=== PATIENT | female | born 1950 | race Hispanic/Latino ===

== ENCOUNTER 2025-06-14 11:13 | Emergency (ER) | payer MEDICARE ==
[~2025-06-14] VITALS: Ht 152.4 cm; Wt 78.9 kg
--- NOTE | 2025-06-14 11:27 | ERN ---
ED Note History of Present Illness Stated Complaint: SOB Chief Complaint: Shortness of Breath Time Seen by MD: 11:15 Dictation: PATIENT IS A 75-YEAR-OLD FEMALE COMING IN FROM OFFICE WITH HISTORY OF END-STAGE RENAL DISEASE AND NEEDING ACCESS FOR DIALYSIS AND INITIATION OF DIALYSIS. SHE STATES SHE HAS HAS CHEST PRESSURE FOR THE LAST WEEK AND SHORTNESS A BREATH ON EXERTION FOR SEVERAL WEEKS. NO NAUSEA VOMITING NO REFERRED PAIN. Allergies: Coded Allergies: No Known Drug Allergies (Unverified Allergy, Unknown, 06/14/25) Past Medical History Past Medical History: High Cholesterol, Hypertension, Renal Disese, Renal Failure Surgical History: Other History: Not Applicable RN Note Reviewed/Agreed w/PFSH: Yes Review of System Dictation CONSTITUTIONAL: NEGATIVE EXCEPT FOR HPI HEAD/FACE: NEGATIVE EXCEPT FOR HPI EENT: NEGATIVE EXCEPT FOR HPI RESPIRATORY: NEGATIVE EXCEPT FOR HPI SHORTNESS A BREATH/CHEST PRESSURE GASTROINTESTINAL/ABDOMINAL: NEGATIVE EXCEPT FOR HPI GENITOURINARY: NEGATIVE EXCEPT FOR HPI MUSCULOSKELETAL: NEGATIVE EXCEPT FOR HPI INTEGUMENTARY: NEGATIVE EXCEPT FOR HPI NEUROLOGICAL/PSYCH: NEGATIVE EXCEPT FOR HPI HEMATOLOGIC/LYMPHATIC: NEGATIVE EXCEPT FOR HPI ALL SYSTEMS NEGATIVE, EXCEPT NOTED ABOVE. 13 POINT REVIEW OF SYSTEMS ASSESSED AND ALL NEGATIVE EXCEPT FOR ABOVE. Initial Vital Sign VS Vital Signs Date Time Temp Pulse Resp B/P (MAP) Pulse Ox O2 Delivery O2 Flow Rate FiO2 06/14/25 11:15 97.9 68 20 208/66 95 Room Air 06/14/25 11:34 0 21 Physical Exam Dictation VITAL SIGNS REVIEWED GENERAL APPEARANCE: ALERT, ORIENTED X 3, N MILD ACUTE DISTRESS, WELL DEVELOPED, NOURISHED. OBESE HEAD AND FACE: NON-TRAUMATIC. EYES: PERRL, PINK CONJUNCTIVAS, EYELID NO TRAUMA, ANTERIOR CHAMBER WITH ARCUS SENILIS. EARS: PINNAS INTACT AND NO SIGNS OF TRAUMA OR ERYTHEMA EAR CANALS CLEAR AND NO DISCHARGE TM NO ERYTHEMA NOSE: NO DISCHARGE, NO BLEEDING. OROPHARYNX: MOUTH NORMAL, TONGUE PINK, PHARYNX CLEAR,NO ERYTHEMA, TONSILS NO EXUDATES, NO ABSCESSES NOTED, MUCOUS MEMBRANE MOIST NECK: SUPPLE, NON-TENDER, NO THYROMEGALY, NO MASSES, NO JVD, NO BRUITS BREAST:DEFERRED CHEST:NO TENDERNESS, NO CREPITUS, NO PARADOXICAL MOVEMENT, NO RETRACTIONS LUNGS:CLEAR, WELL-VENTILATED, SYMMETRIC, NO RALES, NO WHEEZING, NO RHONCHI, NO STRIDOR, GOOD BREATH SOUNDS BILATERALLY HEART: REGULAR RATE, REGULAR RHYTHM, NO MURMUR, NO GALLOPS VASCULAR: TRACE PERIPHERAL EDEMA, ABDOMEN: SOFT, POSITIVE BOWEL SOUNDS, NONDISTENDED, NO GUARDING, NONTENDER, NO REBOUND, NO MASSES NO HEPATOMEGALY, NO SPLENOMEGALY, NO CRUZ'S SIGN, NO HERNIAS. RECTAL: DEFERRED GENITAL: DEFERRED NEUROLOGICAL: NORMAL SPEECH, MOTOR FUNCTION INTACT, SENSORY FUNCTION INTACT MUSCULOSKELETAL: NECK NONTENDER, FULL RANGE OF MOTION, BACK NONTENDER, FULL RANGE OF MOTION, EXTREMITIES: NONTENDER, FULL RANGE OF MOTION SKIN: COLOR PINK, DRY, NO TURGOR, NO RASH, NO LACERATIONS, NO ABRASIONS, NO CONTUSIONS. LYMPHATIC: DEFERRED Results (Laboratory/Radiology) Laboratory/Radiology Laboratory Tests Test 06/14/25 12:11 06/14/25 12:12 Urine Color COLORLESS (YELLOW) Urine Appearance CLEAR (CLEAR) Urine pH 7.5 (5.0-8.0) Urine Specific Media 1.008 (1.001-1.031) Urine Protein 300 mg/dL (NEGATIVE) H Urine Glucose (UA) NEGATIVE mg/dL (NEGATIVE) Urine Ketones NEGATIVE mg/dL (NEGATIVE) Urine Occult Blood +- (TRACE) (NEGATIVE) H Urine Nitrate NEGATIVE (NEGATIVE) Urine Bilirubin NEGATIVE mg/dL (NEGATIVE) Urine Urobilinogen 0.2 mg/dL (0.2-1.0) Urine Leukocyte Esterase NEGATIVE Elida/uL Urine RBC None /HPF (0-1) Urine WBC 6-10 /HPF (0-1) H Urine Squamous Epithelial Cells FEW /HPF (0-2) Urine Bacteria Rare /HPF (None Seen) White Blood Count 9.7 K/uL (4.8-10.8) Red Blood Count 2.84 MIL/uL (4.00-5.50) L Hemoglobin 8.5 g/dL (12.0-16.0) L Hematocrit 26.3 % (36-48) L Mean Corpuscular Volume 92.6 fL (79-99) Mean Corpuscular Hemoglobin 29.9 pg (27.0-33.0) Mean Corpuscular Hemoglobin Concent 32.3 g/dL (32.0-36.0) Red Cell Distribution Width 15.0 % (11.0-15.5) Platelet Count 205 K/uL (130-400) Mean Platelet Volume 10.8 fL (7.5-10.5) H Immature Granulocyte % (Auto) 0.3 % (0-1) Neutrophils (%) (Auto) 79.8 % (40.0-77.0) H Lymphocytes (%) (Auto) 11.2 % (21.0-51.0) L Monocytes (%) (Auto) 6.6 % (3.0-13.0) Eosinophils (%) (Auto) 1.6 % (0.0-8.0) Basophils (%) (Auto) 0.5 % (0.0-5.0) Neutrophils # (Auto) 7.8 K/uL (1.8-7.7) H Lymphocytes # (Auto) 1.1 K/uL (1.0-4.8) Monocytes # (Auto) 0.6 K/uL (0.1-1.0) Eosinophils # (Auto) 0.16 K/uL (0.00-0.70) Basophils # (Auto) 0.05 K/uL (0.00-0.20) Absolute Immature Granulocyte (auto 0.03 K/uL (0-1) Nucleated Red Blood Cells 0.0 % (0.0-0.19) Prothrombin Time 10.3 SEC (9.6-11.6) Prothromb Time International Ratio 0.97 (0.85-1.15) Activated Partial Thromboplast Time 29.5 SEC (26.3-35.5) Sodium Level 144 mmol/L (136-145) Potassium Level 3.6 mmol/L (3.5-5.1) Chloride Level 99 mmol/L (101-111) L Carbon Dioxide Level 31 mmol/L (21-32) Blood Urea Nitrogen 78 mg/dL (7-18) *H Creatinine 10.0 mg/dL (0.5-1.0) *H Glomerular Filtration Rate Calc 4 mL/min (>90) Random Glucose 98 mg/dL (70-105) Total Calcium 9.1 mg/dL (8.5-10.1) Troponin I High Sensitivity 13 ng/L (4-50) COMPARISON: None provided. FINDINGS: There is mild bilateral perihilar and bibasilar airspace disease that may reflect mild pulmonary edema. Blunting of the left costophrenic angle may reflect a small effusion. No pneumothorax. Mild to moderate cardiomegaly, and pulmonary vascular congestion. IMPRESSION: 1. Mild bilateral pulmonary edema with possible small left pleural effusion 2. Mild to moderate cardiomegaly with pulmonary vascular congestion /[place] Labs Reviewed?: Yes EKG Comment: EKG SINUS RHYTHM/HEART RATE 75/LEFT ATRIAL ENLARGEMENT/QT INTERVAL PROLONGED 525 MILLISECONDS ED Course ED Course Orders Procedure Category Date Status Time Pt And Ptt LAB 06/14/25 Complete 11:21 Cbc With Differential LAB 06/14/25 Complete 11:21 Chest 1vw RAD 06/14/25 Resulted 11:21 12 Lead Ekg Tracing- EKG 06/14/25 Complete Technical 11:21 Troponin I High LAB 06/14/25 Complete Sensitivity 11:21 Urinalysis Profile LAB 06/14/25 Complete 11:21 Basic Metabolic Panel LAB 06/14/25 Complete 11:21 Hydralazine 20mg Inj PHA 06/14/25 Complete (Apresoline 20mg In 11:30 Culture Urine URSULA 06/14/25 In Process 12:42 Furosemide 100mg Vial PHA 06/14/25 Complete (Lasix 100mg Vial) 14:00 Current Medications Medications (Trade) Dose Ordered Sig/Moe Route PRN Reason Start Time Stop Time Status Last Admin Dose Admin Furosemide (LASix 100MG VIAL) 80 mg ONCE ONCE IVP 06/14/25 14:00 06/14/25 14:01 DC 06/14/25 15:13 Hydralazine HCl (APRESOLine 20MG INJ) 20 mg ONCE ONCE IM 06/14/25 11:30 06/14/25 11:31 DC 06/14/25 12:32 Vital Signs Date Time Temp Pulse Resp B/P (MAP) Pulse Ox O2 Delivery O2 Flow Rate FiO2 06/14/25 15:06 98.2 66 18 141/61 99 Nasal Cannula* 2 06/14/25 13:15 97.9 64 18 168/40 99 Nasal Cannula* 2 06/14/25 12:45 97.9 62 20 181/67 96 Nasal Cannula* 2 06/14/25 12:30 97.9 61 20 191/71 99 Nasal Cannula* 2 06/14/25 11:34 97.9 68 20 208/66 96 Room Air* 0 21 8 11:15 97.9 68 20 208/66 95 Room Air 1315/NO INTERVENTIONAL RADIOLOGY AVAILABLE UNTIL [place] [facility] [place] WILL CONSULT GENERAL SURGERY TO SEE IF HE COULD PLACE A [facility] OR WE WILL FOLLOW UP FOR TRANSFER 1316/SPOKE WITH AND HE IS UNABLE TO ASSIST WITH A [facility]ATH. 1320/PATIENT TO SEE IF CYN CATHETER POSSIBLE IN ICU. ALSO WE WILL NOTIFY . 1350/SPOKE WITH AND HE IS AWARE THAT I WE WILL ATTEMPT TO HAVE PATIENT ADMITTED TO ICU FOR A CYN CATHETER IF CAN BE PLACED BY FUNERAL PROFESSIONAL, IF NOT HE WOULD LIKE PATIENT TRANSFERRED TO [facility] WHERE HE HAS PRIVILEGES. HE DID AGREED THAT IT WE COULD HAVE PATIENT ADMITTED FOR CYN HERE THAT HE WOULD BE AMENABLE TO THAT HOWEVER HE SAID SHE NEEDS TO BE DIALYZED NOW 1410/SPOKE WITH [facility]OS[facility]IGUEL [facility] FOR [facility]. HE HAD SPOKEN TO AND . NO CATHETERS AVAILABLE AT [facility] [place]. THEY WOULD LIKE PATIENT TRANSFERRED TO [facility] ER THE ER SPOKE WITH Oli RN LUNCH TRUCK OPERATOR TO INITIATE TRANSFER 1505 SPOKE WITH [facility] AT [facility] TRANSFER CENTER. SHE ATTEMPTED TO TRANSFER ME TO DR. THOMAS MCKEON, HE DEFERRED ME TO INTERVENTIONAL RADIOLOGISTS FOR CATHETER PLACEMENT. THE RADIOLOGIST'S WAS UNAVAILABLE AT THIS TIME TO TALK TO ME AND TRANSFER CENTER SAID THAT THEY WOULD CALL BACK WHEN HE WAS AVAILABLE. 1540/SPOKE WITH INTERVENTIONAL RADIOLOGIST AT [facility]. HE WAS MADE AWARE OF EKG CHEST X-RAY AND LABS SAID HE AGREED TO ACCEPT PATIENT IN TRANSFER FOR PLACEMENT OF PER[facility]ATH AND HEMODIALYSIS. PENDING SPEAKING TO DR. THOMAS MCKEON HOSPITALIST FOR ACCEPTANCE ADMISSION. 1550/SPOKE WITH DR. THOMAS MCKEON HOSPITALIST AT [facility]. REVIEWED NEED FOR [facility], MY DISCUSSION WITH THE INTERVENTIONAL RADIOLOGISTS AT [facility] EKG [facility]. HE AGREED TO ACCEPT PATIENT IN TRANSFER. HEART Score Response (Comments) Value EKG: Repolarization changes 1 Age: > 65yrs (+2) 2 Risk Factors: 3+ risk factors (+2) 2 Initial Troponin: Normal limit (0) 0 Total 5 Medical Decision Making MDM MDM: DIFFERENTIAL DIAGNOSIS: ACS/AMI/END-STAGE RENAL DISEASE/ELECTROLYTE IMBALANCE/FLUID OVERLOAD/PULMONARY EDEMA/UNCONTROLLED HYPERTENSION RATIONALE: TESTS CONSIDERED AND ORDERED SECONDARY TO SHARED DECISION MAKING INCLUDE: LABS, ECG AND RADIOLOGY PREVIOUS OUTSIDE RECORDS REVIEWED: OLD ER VISITS. RISK OF COMPLICATION AND/OR MORBIDITY OR MORTALITY OF PATIENT MANAGEMENT: MODERATE MEDICATIONS-PER MEDICATION RECONCILIATION NEED FOR HOSPITALIZATION: PATIENT DOES MEET CRITERIA FOR HOSPITALIZATION. PATIENT WILL NEED BE ADMITTED FOR HEMODIALYSIS ACCESS AND INITIATION OF HEMODIALYSIS NEED FOR EMERGENCY MAJOR/MINOR SURGERY: NO THERE ARE NO SOCIAL CONCERNS WITH THIS PATIENT. PRESCRIPTION DRUG MANAGEMENT PRESCRIPTIONS WILL INCLUDE SYMPTOMATIC CARE PATIENT'S PRIOR EXTERNAL MEDICAL RECORDS FROM OTHER ER VISITS WERE REVIEWED BY ME INDICATED. PRIOR TESTING AND RESULTS FROM PREVIOUS VISITS WERE REVIEWED. PRIOR TESTS WERE TAKEN INTO ACCOUNT WITH MEDICAL DECISION MAKING AND RESOURCE UTILIZATION, INDEPENDENT HISTORIAN/HISTORIANS WERE USED TO OBTAIN COMPLETE MEDICAL HISTORY. I INDEPENDENTLY INTERPRETED THE TEST THAT WERE PERFORMED, RESULTS WERE REVIEWED BY ME AND CONSIDERED FINDINGS ON RADIOLOGY IF ORDERED. MEDICAL MANAGEMENT AND EXAMINATION INTERPRETATION DISCUSSIONS WERE HAD BY ME WITH OTHER QUALIFIED HEALTHCARE PROFESSIONALS INDICATED FOR THE PATIENT'S CARE. DX & DISP Disposition: Transfer Departure Impression: Primary Impression: ESRD needing dialysis Additional Impressions: Anemia of chronic kidney failure, Pulmonary edema, Uncontrolled hypertension, Hypochloremia Condition: Stable Referrals: NONE (PCP) I have reviewed the case, and I agree with, Diagnosis and Plan LATRICIA CHOUDHURY NP Jun 14, 2025 11:27
--- NOTE | 2025-06-14 12:06 | EKG ---
[facility] Test Date: 2025-06-14 Test Time: 11:34:56 Pat Name: SARA WOOD Department: [facility] Room: Gender: F [employer] Instructor: [id number] : 1950 Requested By: LATRICIA CHOUDHURY Order Number: [id number] Reading MD: Alpesh James Measurements Intervals [facility] Rate: 75 P: 75 GA: 168 QRS: 25 QRSD: 110 T: 53 QT: 468 QTc: 525 Interpretive Statements Sinus rhythm Probable left atrial enlargement Prolonged QT interval No previous ECG available for comparison Electronically Signed On 06-15-2025 12:25:28 CDT by Alpesh James Please click the below link to view image of tracing.
[2025-06-14 12:22] LABS: IMMATURE GRANULOCYTE ABSOLUTE 0.03 K/uL (0-1); NUCLEATED RED BLOOD CELLS 0.0 % (0.0-0.19); PLATELET COUNT (AUTO) 205 K/uL (130-400); RED BLOOD CELL COUNT(AUTO) 2.84 MIL/uL (4.00-5.50); RED CELL DISTRIBUTION WIDTH 15.0 % (11.0-15.5); WHITE BLOOD COUNT (AUTO) 9.7 K/uL (4.8-10.8)
[2025-06-14 12:24] LABS: APPEARANCE,URINE CLEAR (CLEAR); GLUCOSE, URINE (UA) NEGATIVE (NEGATIVE); LEUKOCYTE ESTERASE ,URINE NEGATIVE Leu/uL (NEGATIVE); NITRATE,URINE NEGATIVE (NEGATIVE); OCCULT BLOOD,URINE +- (TRACE) (NEGATIVE)
[2025-06-14 12:26] LABS: ADD UA MICROSCOPIC YES
[2025-06-14 12:31] LABS: SQUAMOUS EPITHELIAL CELL,UR FEW /HPF (0-2)
[2025-06-14 12:32] LABS: INR 0.97 (0.85-1.15)
[2025-06-14 12:33] LABS: GLOMERULAR FILTR. RATE CALC 4.0 mL/min (>90); GLUCOSE,RANDOM 98.0 mg/dL (70-105); SODIUM SERUM 144.0 mmol/L (136-145)
--- NOTE | 2025-06-14 12:36 | HMCIMG ---
EXAM: CR Chest, 1 View. CLINICAL HISTORY: CHEST PAIN/SOB COMPARISON: None provided. FINDINGS: There is mild bilateral perihilar and bibasilar airspace disease that may reflect mild pulmonary edema. Blunting of the left costophrenic angle may reflect a small effusion. No pneumothorax. Mild to moderate cardiomegaly, and pulmonary vascular congestion. IMPRESSION: 1. Mild bilateral pulmonary edema with possible small left pleural effusion 2. Mild to moderate cardiomegaly with pulmonary vascular congestion /[place]
[2025-06-14 12:46] LABS: CREATININE 10.0 mg/dL (0.5-1.0); UREA NITROGEN, BLOOD 78.0 mg/dL (7-18)
[2025-06-14] MEDS: furoSEMIDE 100MG VIAL 10 MG/ML VIAL IVP ONE (15:13)
[2025-06-14 17:32] VITALS: BP 163/46; PULSE 70; RESP 18; TEMP 98.3; O2SAT 98
--- NOTE | 2025-06-14 18:01 | NUR ---
REPORT GIVEN TO LAZARO WILLIAM,[facility] [place]
--- NOTE | 2025-06-14 18:15 | NUR ---
[facility] BY TO REPAIRER VENEER SHEET PT.
== END 2025-06-14 18:20 | disposition short-term general hospital (02) ==
LOC: EDH 11:13
DX: I13.11 Hypertensive heart and chronic kidney disease without heart failure, with stage 5 chronic kidney disease, or end stage renal disease (principal); N18.6 End stage renal disease; D63.1 Anemia in chronic kidney disease; E78.00 Pure hypercholesterolemia, unspecified; E87.8 Other disorders of electrolyte and fluid balance, not elsewhere classified; J81.1 Chronic pulmonary edema; Z99.2 Dependence on renal dialysis
CPT/HCPCS: 99285; 96374; 71045; 84484; 80048; 85025; 85610; 85730; 87086; 81001; 36415; 93005; 96372; J0360; J1938; 99284